=== PATIENT | female | born 1955 | race Caucasian/White ===

== ENCOUNTER → 2017-08-25 | Outpatient (CLI) | payer MEDICARE | END | disposition home or self-care (01) | LOC: PCVCCLINIC 11:20 | PROVIDERS: ATTEND Internal Medicine Cardiovascular Disease | DX: I10 Essential (primary) hypertension (principal); E78.00 Pure hypercholesterolemia, unspecified; Q23.3 Congenital mitral insufficiency; D80.2 Selective deficiency of immunoglobulin A [IgA]; F32.9 Major depressive disorder, single episode, unspecified; E78.1 Pure hyperglyceridemia; Z98.890 Other specified postprocedural states; Z86.73 Personal history of transient ischemic attack (TIA), and cerebral infarction without residual deficits; Z90.49 Acquired absence of other specified parts of digestive tract; Z79.82 Long term (current) use of aspirin; Z79.899 Other long term (current) drug therapy; Z88.2 Allergy status to sulfonamides | CPT/HCPCS: 36415; 80061; 93005; G0463 ==

== ENCOUNTER → 2018-03-09 | Outpatient (CLI) | payer MEDICARE | END | disposition home or self-care (01) | LOC: PCVCIMAG 13:22 | DX: I10 Essential (primary) hypertension (principal); I34.0 Nonrheumatic mitral (valve) insufficiency; M32.9 Systemic lupus erythematosus, unspecified; D80.2 Selective deficiency of immunoglobulin A [IgA]; Q23.3 Congenital mitral insufficiency; R06.02 Shortness of breath; Z98.890 Other specified postprocedural states; Z86.73 Personal history of transient ischemic attack (TIA), and cerebral infarction without residual deficits; Z79.82 Long term (current) use of aspirin; Z79.899 Other long term (current) drug therapy | CPT/HCPCS: 80061; 93005; 93306; G0463 ==

== ENCOUNTER → 2018-09-14 | Outpatient (CLI) | payer MEDICARE ==
--- NOTE | 2018-09-15 19:11 | PCVCIMAG ---
APPROVED REPORT Study performed: 09/14/2018 11:00:35 Exam: Stress Echocardiogram Indication: Dyspnea Patient Location: Echo lab Stress Nurse: Hermelinda Malagon RN Status: routine Ht: 5 ft 2 in HR: 71 bpm BP: 162/92 mmHg Rhythm: NSR Medical History Medical History: S/P MV Repair (2001); Mitral Regurgitation Cardiac Risk Factors: HTN Procedure The patient underwent an Exercise Stress Test using the Rocky Protocol. Blood pressure, heart rate, and EKG were monitored. An Echocardiogram was performed by communication electronic technician in four stages in quad fashion. At peak stress, four selected images were obtained and placed side by side with resting images for comparison. Stress Test Details Stress Test: Exercise stress testing was performed using a Rocky protocol. HR Resting HR: 71 bpmMax Heart Rate (APMHR): 157 bpm Max HR Achieved: 139 bpmTarget HR (85% APMHR): 133 bpm % of APMHR: 88 Recovery HR: 80 bpm HR response to stress: Normal HR response to stress BP Resting BP: 162/92 mmHg Max BP: 162/86 mmHg Recovery BP: 136/84 mmHg ECG Resting ECG: Sinus Rhythm Stress ECG: Sinus Rhythm Arrhythmia: rare PVC's Recovery ECG: Sinus Rhythm Clinical Reason for Termination: Maximal effort, Dyspnea Exercise duration: 6 min 00 sec Highest Stage Achieved: Stage 0: 1.7 mph at 0% grade. Exercise capacity: 7.00 METs Overall Exercise Capacity for Age: Average Stress ECG Conclusion ECG: Non-ischemic Clinical: Non-ischemic Pre-Stress Echo The resting Echocardiogram showed normal left ventricular contractility with an estimated Ejection Fraction of about >55%. Normal wall motion in all segments on baseline images. Post-Stress Echo The stress Echocardiogram showed normal left ventricular contractility with an estimated Ejection Fraction of about 60-65%. Normal augmentation of wall motion in all segments on post stress images. Clinical No clinical or ECG evidence for ischemia. Conclusion Clinical Response: Non-ischemic Exercise Capacity: Average Stress ECG Response: Non-ischemic Stress Echo Images: Non-ischemic The left ventricle is normal in size and wall thickness in both the rest and stress images. The resting peak mitral valve gradient is 28 mmHg and the mean is 15 mmHg. The mitral valve area is 1.6 cm2. Moderate mitral regurgitation is present. Trace tricuspid regurgitation. Pulmonary artery pressure is 21 mmHg. Other Information Study Quality: Good <Conclusion> The left ventricle is normal in size and wall thickness in both the rest and stress images. The resting peak mitral valve gradient is 28 mmHg and the mean is 15 mmHg. The mitral valve area is 1.6 cm2. Moderate mitral regurgitation is present. Trace tricuspid regurgitation. Pulmonary artery pressure is 21 mmHg.
== END | disposition home or self-care (01) ==
LOC: PCVCIMAG 12:13
PROVIDERS: ATTEND Internal Medicine Cardiovascular Disease
DX: I05.1 Rheumatic mitral insufficiency (principal); I10 Essential (primary) hypertension; R06.09 Other forms of dyspnea
CPT/HCPCS: 93325; 93351

== ENCOUNTER → 2019-01-04 | Outpatient (CLI) | payer MEDICARE | END | disposition home or self-care (01) | LOC: PCVCCLINIC 12:06 | PROVIDERS: ATTEND Internal Medicine Cardiovascular Disease | DX: I34.2 Nonrheumatic mitral (valve) stenosis (principal); E78.00 Pure hypercholesterolemia, unspecified; I10 Essential (primary) hypertension; D80.2 Selective deficiency of immunoglobulin A [IgA]; M32.9 Systemic lupus erythematosus, unspecified; E78.5 Hyperlipidemia, unspecified; Z86.73 Personal history of transient ischemic attack (TIA), and cerebral infarction without residual deficits; Z98.890 Other specified postprocedural states; Z79.82 Long term (current) use of aspirin | CPT/HCPCS: 36415; 80061; 93005; G0463 ==

== ENCOUNTER → 2019-09-06 | Outpatient (CLI) | payer MEDICARE ==
--- NOTE | 2019-09-06 15:43 | PCVCIMAG ---
APPROVED REPORT Study performed: 09/06/2019 10:12:23 EXAM: Comprehensive 2D, Doppler, and color-flow Echocardiogram Patient Location: Echo lab Status: routine BSA: 1.60 HR: 68 bpmBP: 152/68 mmHg Rhythm: NSR Other Information Study Quality: Adequate Risk Factors: Cardiac Risk Factors: HTN Indications Mitral stenosis, hx mitral valve repair 2D Dimensions IVSd: 10.87 (7-11mm)LVOT Diam: 20.71 (18-24mm) LVDd: 42.29 mm PWd: 9.84 (7-11mm)Ascending Ao: 30.58 (22-36mm) LVDs: 30.66 (25-40mm) Left Atrium: 37.00 (27-40mm) Aortic Root: 30.47 mm LV Single Plane 4CH: 46.97 % LV Single Plane 2CH: 47.92 % Biplane EF: 48.5 % Volumes Left Atrial Volume (Systole) Single Plane 4CH: 51.03 mLSingle Plane 2CH: 58.48 mL LA ESV Index: 34.00 mL/m2 Aortic Valve AoV Peak Deric.: 1.37 m/s AO Peak Gr.: 7.56 mmHgLVOT Max P.74 mmHg LVOT Max V: 0.83 m/s AMARA Vmax: 2.03 cm2 Mitral Valve MV Peak Gr.: 16.67 mmHg MV Mean Gr.: 8.57 mmHgE/A Ratio: 1.1 MV Decel. Time: 332.87 ms MV E Max Deric.: 2.15 m/s MV A Deric.: 1.87 m/s MV Max Deric.: 2.04 m/s MV Mean Deric.: 1.39 m/s MV VTI: 603.30 mm MV PHT: 142.34 ms MVA (PHT): 1.55 cm2 IVRT: 100.35 ms Pulmonary Valve PV Peak Deric.: 0.78 m/sPV Peak Gr.: 2.43 mmHg Pulmonary Vein P Vein S: 0.28 m/s P Vein D: 0.43 m/s P Vein S/D Ratio: 0.65 Tricuspid Valve TR Peak Deric.: 2.46 m/s TR Peak Gr.: 24.16 mmHg Left Ventricle The left ventricle is normal size. There is normal LV segmental wall motion. There is normal left ventricular wall thickness. Left ventricular systolic function is borderline lower limits of normal. LVEF is 45-50%. Grade II - pseudonormal filling dynamics. Right Ventricle The right ventricle is normal size. The right ventricular systolic function is normal. Atria The left atrium size is normal. The right atrium size is normal. Aortic Valve The aortic valve is normal in structure. No aortic regurgitation is present. There is no aortic valvular stenosis. Mitral Valve Mitral valve repair with thickened leaflets and annular calcification. Mild to moderate mitral regurgitation. Moderate mitral stenosis with mean gradient of 8.5 mmHg and peak gradient 16.7 mmHg. MVA by PHT is 1.5 cm2. Tricuspid Valve The tricuspid valve is normal in structure. Mild tricuspid regurgitation with PAP of 31 mmHg. Pulmonic Valve The pulmonary valve is normal in structure. Mild pulmonic regurgitation. Great Vessels The aortic root is normal in size. IVC is normal in size and collapses >50% with inspiration. Pericardium There is no pericardial effusion. There is no pleural effusion. <Conclusion> The left ventricle is normal size. Left ventricular systolic function is borderline lower limits of normal. LVEF is 45-50%. Grade II - pseudonormal filling dynamics. The right ventricle is normal size. The left atrium size is normal. The aortic valve is normal in structure. Mitral valve repair with thickened leaflets and annular calcification. Mild to moderate mitral regurgitation. Mild tricuspid regurgitation with PAP of 31 mmHg. The aortic root is normal in size. There is no pericardial effusion.
== END ==
LOC: PCVCIMAG 10:10
PROVIDERS: ATTEND Internal Medicine Cardiovascular Disease
DX: I34.2 Nonrheumatic mitral (valve) stenosis (principal); E78.00 Pure hypercholesterolemia, unspecified; M32.9 Systemic lupus erythematosus, unspecified; Z86.73 Personal history of transient ischemic attack (TIA), and cerebral infarction without residual deficits; Z98.890 Other specified postprocedural states; I10 Essential (primary) hypertension; I34.0 Nonrheumatic mitral (valve) insufficiency; D64.9 Anemia, unspecified; D80.2 Selective deficiency of immunoglobulin A [IgA]; R93.1 Abnormal findings on diagnostic imaging of heart and coronary circulation; K11.7 Disturbances of salivary secretion; R00.1 Bradycardia, unspecified; Q23.3 Congenital mitral insufficiency
CPT/HCPCS: 93005; 93306; G0463